=== PATIENT | female | born 1970 | race African-American/Black ===

== ENCOUNTER 2017-07-23 12:46 | Outpatient (CLI) | payer OTHER | END 2017-07-23 12:47 | disposition home or self-care (01) | LOC: BICRAD 12:46 | PROVIDERS: ATTEND Family Medicine | DX: M25.561 Pain in right knee (principal); M25.461 Effusion, right knee; W19.XXXA Unspecified fall, initial encounter ==

== ENCOUNTER 2017-12-21 08:27 | Outpatient (CLI) | payer OTHER | END 2017-12-21 08:28 | disposition home or self-care (01) | LOC: BICMAMMO 08:27 | PROVIDERS: ATTEND Family Medicine | DX: Z12.31 Encounter for screening mammogram for malignant neoplasm of breast (principal) | CPT/HCPCS: 77063; 77067 ==

== ENCOUNTER 2018-01-16 13:06 | Outpatient (CLI) | payer OTHER | END 2018-01-16 13:07 | disposition home or self-care (01) | LOC: DTY/OP 13:06 | PROVIDERS: ATTEND Family Medicine | DX: E66.9 Obesity, unspecified (principal); Z68.34 Body mass index [BMI] 34.0-34.9, adult; Z71.3 Dietary counseling and surveillance | CPT/HCPCS: 97802 ==

== ENCOUNTER 2018-06-11 15:56 | Outpatient (CLI) | payer OTHER ==
--- NOTE | 2018-06-11 16:32 | RAD ---
FOUR VIEWS LEFT KNEE: Date: 06-11-18 History: Left lower extremity pain. FINDINGS: There is a tiny osteophyte involving the tibial to medial joint compartment. No fracture or dislocati on is seen. There is no joint space narrowing. Very small joint effusion is present in the suprapatel lar location. IMPRESSION: Small joint effusion without evidence of acute osseous abnormality. POS: [facility]
--- NOTE | 2018-06-11 16:43 | ULT ---
VENOUS DUPLEX SONOGRAM LEFT LOWER EXTREMITY: History: Left leg pain and edema. FINDINGS: Left common femoral vein and greater saphenous junction were evaluated along with the femoral, deep f emoral, popliteal, and posterior tibial veins. There is good color and flow, compression, and augment ation. IMPRESSION: No sonographic evidence of DVT within the left lower extremity. POS: [facility]
== END 2018-06-11 15:57 | disposition home or self-care (01) ==
LOC: ULT 15:56
PROVIDERS: ATTEND Nurse Practitioner Family
DX: M79.605 Pain in left leg (principal); M25.461 Effusion, right knee
CPT/HCPCS: 83520; 85652; 86038; 86200; 86225

== ENCOUNTER 2020-07-13 08:42 | Outpatient (CLI) | payer OTHER | END 2020-07-13 08:43 | disposition home or self-care (01) | LOC: BICMAMMO 08:42 | PROVIDERS: ATTEND Family Medicine | DX: Z12.31 Encounter for screening mammogram for malignant neoplasm of breast (principal) | CPT/HCPCS: 77063; 77067 ==